=== PATIENT | female | born 1955 | race Caucasian/White ===

== ENCOUNTER 2018-04-12 13:38 | Emergency (ER) | payer BC ==
[~2018-04-12] VITALS: Ht 157.5 cm; Wt 63.0 kg
[~2018-04-12 13:38] MED LIST: ALBU90OI6; DULO60 PO; GLIP5; Omeprazole20 M1; PROP10; Zestril30 MG
[2018-04-12 14:43] LABS: BASOPHILS ABSOLUTE AUTO 0.06 K/mm3 (0.00-0.23); BASOPHILS PERCENT AUTO 1 % (0-2); EOSINOPHILS ABSOLUTE AUTO 0.15 K/mm3 (0.00-0.68); EOSINOPHILS PERCENT AUTO 3 % (0-6); Hematocrit 41.1 % (33.0-51.0); Hemoglobin 14.1 g/dL (11.5-16.0); IMMATURE GRAN PERCENT AUTO 0 % (0-1); LYMPHOCYTES ABSOLUTE AUTO 1.74 K/mm3 (0.84-5.20); LYMPHOCYTES PERCENT AUTO 37 % (21-46); MONOCYTES ABSOLUTE AUTO 0.51 K/mm3 (0.16-1.47); MONOCYTES PERCENT AUTO 11 % (4-13); Mean Corpuscular HGB 33.1 pg (26.0-34.0); Mean Corpuscular HGB Conc 34.3 g/dL (31.5-36.5); Mean Corpuscular Volume 97 fL (80-100); Mean Platelet Volume 9.5 fL (9.1-12.4); NEUTROPHILS ABSOLUTE AUTO 2.28 K/mm3 (1.96-9.15); NEUTROPHILS PERCENT AUTO 48 % (41-73); Platelet Count 268 K/mm3 (150-400); RDW Coefficient Variation 11.8 % (11.7-14.2); RDW Standard Deviation 41.9 fL (35.1-46.3); Red Blood Cell Count 4.26 M/mm3 (3.80-5.20); White Blood Cell Count 4.74 K/mm3 (4.00-11.30)
[2018-04-12 15:04] LABS: Alanine Aminotransfer (ALT/SGP 34 U/L (12-78); Albumin, Blood 4.2 g/dL (3.4-5.0); Alk Phos 77 U/L (50-136); Anion Gap 6 mmol/L (6-16); Aspartate Aminotrans (AST/SGOT 25 U/L (12-37); Bilirubin, Total 0.5 mg/dL (0.1-1.0); Blood Urea Nitrogen 11 mg/dL (8-24); Bun/Creatinine Ratio 16.7 (12.0-20.0); CO2, Blood 28 mmol/L (21-32); Calcium, Blood 9.3 mg/dL (8.5-10.1); Chloride, Blood 106 mmol/L (98-108); Creatinine, Blood 0.66 mg/dL (0.40-1.00); Globulin, Blood 4.1 g/dL (2.2-4.0); Glomerular Filtration Rate >60 (60-); Glucose, Blood 124 mg/dL (70-99); Potassium, Blood 3.6 mmol/L (3.5-5.5); Sodium, Blood 140 mmol/L (136-145); Total Protein, Blood 8.3 g/dL (6.4-8.2)
[2018-04-12 18:48] LABS: Source, Urine Clean Catch
[2018-04-12 18:51] LABS: Appearance, Urine Clear (Clear); Blood, Urine 1+ (Neg); Color, Urine Amber (P-Yellow); Glucose Qualitative, Urine Neg (Neg); Ketones, Urine 1+ (Neg); Leukocyte Esterase, Urine 1+ (Neg); Nitrite, Urine Neg (Neg); Protein, Urine 2+ (Neg); Urobilinogen, Urine 1+ (Normal)
[2018-04-12 18:53] LABS: Bilirubin, Urine 1+ (Neg)
[2018-04-12 18:57] LABS: Amorphous Light (0-Heavy); Bacteria Many /hpf; Calcium Oxalate Crystals Few /hpf; Mucus Light (0-Heavy); Red Blood Cells, Urine 0-2 /hpf (0-2); Squamous Epithelial Cells Few /hpf (Few)
== END 2018-04-12 19:22 | disposition home or self-care (01) ==
LOC: ER 13:38
PROVIDERS: Emergency Medicine
DX: R51 Headache (principal); M47.892 Other spondylosis, cervical region; Z79.899 Other long term (current) drug therapy
CPT/HCPCS: 36415; 70450; 72125; 80053; 81001; 85025; 87086; 99284-25

== ENCOUNTER 2019-09-08 10:40 | Emergency (ER) | payer BC ==
[~2019-09-08] VITALS: Ht 157.5 cm; Wt 62.6 kg
== END 2019-09-08 12:28 | disposition home or self-care (01) ==
LOC: ER 10:40
DX: S86.112A Strain of other muscle(s) and tendon(s) of posterior muscle group at lower leg level, left leg, initial encounter (principal); Z79.899 Other long term (current) drug therapy; Z86.718 Personal history of other venous thrombosis and embolism; X58.XXXA Exposure to other specified factors, initial encounter
CPT/HCPCS: 93971; 99283-25

== ENCOUNTER 2024-03-13 05:39 | Emergency (ER) | payer BC ==
[~2024-03-13] VITALS: Ht 154.9 cm; Wt 60.8 kg
[2024-03-13 06:21] VITALS: BP 125/76
== END 2024-03-13 06:30 | disposition home or self-care (01) ==
LOC: ER 05:39
DX: N30.90 Cystitis, unspecified without hematuria (principal); Z88.5 Allergy status to narcotic agent; Z79.899 Other long term (current) drug therapy
CPT/HCPCS: 99282

== ENCOUNTER 2024-10-31 10:13 | Inpatient (IN) | payer BC ==
[~2024-10-31] VITALS: Ht 160 cm; Wt 59.0 kg
[~2024-10-31 10:13] MED LIST changes: +DULO30 PO; -DULO60 PO; +Prinivil10 MG PO; -Zestril30 MG
[2024-10-31] MEDS ORDERED: NS 1,000 ML IV SCH (10:40)
[2024-10-31] MEDS ORDERED: Ondansetron HCl 2 MG / ML 2ML Vial ONE (10:51)
[2024-10-31] MEDS ORDERED: Ondansetron HCl 2 MG / ML 2ML Vial IV ONE (11:00)
[2024-10-31 11:01] LABS: BASOPHILS ABSOLUTE AUTO 0.05 K/mm3 (0.00-0.23); BASOPHILS PERCENT AUTO 1 % (0-2); EOSINOPHILS ABSOLUTE AUTO 0.04 K/mm3 (0.00-0.68); EOSINOPHILS PERCENT AUTO 0 % (0-6); Hematocrit 39.3 % (33.0-51.0); Hemoglobin 13.3 g/dL (11.5-16.0); IMMATURE GRAN ABSOLUTE AUTO 0.04 K/mm3 (0.00-0.10); IMMATURE GRAN PERCENT AUTO 0 % (0-1); LYMPHOCYTES ABSOLUTE AUTO 1.56 K/mm3 (0.84-5.20); LYMPHOCYTES PERCENT AUTO 15 % (21-46); MONOCYTES ABSOLUTE AUTO 0.81 K/mm3 (0.16-1.47); MONOCYTES PERCENT AUTO 8 % (4-13); Mean Corpuscular HGB 33.2 pg (26.0-34.0); Mean Corpuscular HGB Conc 33.8 g/dL (31.5-36.5); Mean Corpuscular Volume 98 fL (80-100); Mean Platelet Volume 9.3 fL (9.1-12.4); NEUTROPHILS ABSOLUTE AUTO 7.83 K/mm3 (1.96-9.15); NEUTROPHILS PERCENT AUTO 76 % (41-73); Platelet Count 263 K/mm3 (150-400); RDW Coefficient Variation 11.9 % (11.7-14.2); RDW Standard Deviation 43.3 fL (35.1-46.3); Red Blood Cell Count 4.01 M/mm3 (3.80-5.20); White Blood Cell Count 10.33 K/mm3 (4.00-11.30)
[2024-10-31 11:31] LABS: Albumin/Globulin Ratio 1.2 (0.8-1.8); Bilirubin, Total 0.4 mg/dL (0.1-1.0); Bun/Creatinine Ratio 19.3 (12.0-20.0); Calcium, Blood 9.5 mg/dL (8.5-10.1); Creatinine, Blood 0.52 mg/dL (0.40-1.00); Globulin, Blood 3.4 g/dL (2.2-4.0); Potassium, Blood 3.5 mmol/L (3.5-5.5); Total Protein, Blood 7.4 g/dL (6.4-8.2)
[2024-10-31] MEDS ORDERED: HYDROmorphone HCl/Pf 1MG SYR IV ONE ×2 (11:35→13:35)
[2024-10-31] MEDS ORDERED: FLU VACC TS2024-25(6MOS UP)/PF 45 MCG/0.5 ML SYRINGE IM SCH (15:25)
[2024-10-31] MEDS ORDERED: D5W-1/2NS 1,000 ML IV SCH (15:30)
[2024-10-31] MEDS ORDERED: Albuterol HFA200 ACT/6.7 GM INH INH PRN (15:35)
[2024-10-31] MEDS ORDERED: Azithromycin 250 MG Tab PO SCH (16:00)
[2024-10-31] MEDS ORDERED: Pantoprazole Sodium 40 MG Injection IV SCH (16:30)
[2024-10-31 19:15] VITALS: BP 108/68
[2024-10-31] MEDS ORDERED: FentaNYL Citrate 50 MCG/ML 2 ML Injection IV ONE (20:05)
[2024-10-31] MEDS ORDERED: Ondansetron HCl 2 MG / ML 2ML Vial IV PRN (20:05)
[2024-10-31] MEDS ORDERED: FentaNYL Citrate 50 MCG/ML 2 ML Injection IV PRN (20:05)
--- NOTE | 2024-10-31 23:09 | NUR ---
ADMIT NOTE 69 YR OLD FEMALE ADMITTED TO FLOOR FROM THE ED WITH DX OF CHOLITIS. ALERT AND ORIENTED. VSS. CONTINENT. VOICED SEVERE ABD PAIN, NOTIFIED AND FENTANYL 25-50 MCG IV ORDERED Q 4 HR PRN AND ZOFRAN IV FOR NAUSEA PRN. ORIENTED TO USE OF CALL LIGHT. IVF OF D5 1/2 NS ORDERED AND STARTED AT 75 ML/HR. HOB ELEVATED. FIRST DOSE OF FENTANYL ADMINISTERED, MED EFFECTIVE. CALL LIGHT IN REACH, RAILS UP X 2 AND BED IN LOW POSITION FOR SAFETY. ABLE TO REPOSITION SELF IN BED WITHOUT ASSIST FOR COMFORT. AGREED TO USE CALL LIGHT IF NEED OOB. WILL CONT TO MONITOR
--- NOTE | 2024-11-01 03:20 | NUR ---
BAKER BISCUIT SUMMARY WAS ADMITTED TO FLOOR EARLIER THIS SHIFT WITH DX OF CHOLITIS. CAME FROM THE ED WITH SEVERE ABD DISCOMFORT. ALERT AND ORIENTED. COOPERATIVE. MD WAS NOTIFIED, ORDERS FOR FENTANYL (FOR PAIN), AND ZOFRAN (FOR NAUSEA) WERE OBTAINED. HAS RECEIVED FENTANYL X 2 OF THIS WRITING FOR PAIN. IVF OF D5 1/2 NS INFUSING AT 75 ML/HR. HAS BEEN RESTING QUIETLY WITH FEW INTERRUPTIONS OTHERWISE. VSS. UP TO BATHROOM WITH ASSIST, CALL LIGHT IN REACH, RAILS UP X 2 AND BED IN LOW POSITION FOR SAFETY. ABLE TO REPOSITION SELF IN BED WITHOUT ASSIST FOR COMFORT. WILL CONTINUE TO MONITOR.
[2024-11-01 04:50] VITALS: BP 87/48
[2024-11-01 05:15] LABS: BASOPHILS ABSOLUTE AUTO 0.04 K/mm3 (0.00-0.23); BASOPHILS PERCENT AUTO 0 % (0-2); EOSINOPHILS ABSOLUTE AUTO 0.01 K/mm3 (0.00-0.68); EOSINOPHILS PERCENT AUTO 0 % (0-6); IMMATURE GRAN ABSOLUTE AUTO 0.07 K/mm3 (0.00-0.10); IMMATURE GRAN PERCENT AUTO 1 % (0-1); LYMPHOCYTES ABSOLUTE AUTO 0.82 K/mm3 (0.84-5.20); LYMPHOCYTES PERCENT AUTO 7 % (21-46); MONOCYTES PERCENT AUTO 5 % (4-13); Mean Corpuscular HGB 32.8 pg (26.0-34.0); Mean Corpuscular HGB Conc 33.3 g/dL (31.5-36.5); Mean Corpuscular Volume 98 fL (80-100); Mean Platelet Volume 9.4 fL (9.1-12.4); NEUTROPHILS ABSOLUTE AUTO 10.02 K/mm3 (1.96-9.15); NEUTROPHILS PERCENT AUTO 87 % (41-73); Platelet Count 226 K/mm3 (150-400); RDW Coefficient Variation 12.2 % (11.7-14.2); RDW Standard Deviation 44.3 fL (35.1-46.3); Red Blood Cell Count 3.66 M/mm3 (3.80-5.20); White Blood Cell Count 11.56 K/mm3 (4.00-11.30)
[2024-11-01 05:45] LABS: Bun/Creatinine Ratio 15.5 (12.0-20.0); Calcium, Blood 8.7 mg/dL (8.5-10.1); Creatinine, Blood 0.52 mg/dL (0.40-1.00); Potassium, Blood 3.6 mmol/L (3.5-5.5)
[2024-11-01 07:27] VITALS: BP 96/59
[2024-11-01] MEDS ORDERED: DULoxetine HCL 20 MG Cap DR PO SCH (09:00)
[2024-11-01] MEDS ORDERED: Enoxaparin 40 MG/0.4 ML SYR SC SCH (09:00)
[2024-11-01] MEDS ORDERED: Lisinopril 10 MG Tab PO SCH (09:00)
[2024-11-01] MEDS ORDERED: Acetaminophen 325 MG TABLET PO PRN (10:20)
[2024-11-01] MEDS ORDERED: Dicyclomine HCl 20 MG Tab PO SCH (13:00)
[2024-11-01] MEDS ORDERED: Morphine Sulfate 4 MG/1 ML Injection IV PRN (14:10)
[2024-11-01] MEDS ORDERED: FentaNYL Citrate 50 MCG/ML 2 ML Injection IV PRN (14:25)
[2024-11-01] MEDS ORDERED: NS 250 ML IV PRN (14:45)
[2024-11-01] MEDS ORDERED: Piperacillin/Tazobactam Sod 4.5 GM in NS 100 ML IV SCH (15:00)
[2024-11-01 16:33] VITALS: BP 105/65
--- NOTE | 2024-11-01 19:37 | NUR ---
SHIFT SUMMARY PT IS A/OX4, SBA TO THE BATHROOM. PT REPORTING ABDOMINAL PAIN WITH MINIMAL/MODERATE RELIEF WITH PRN FENTANYL Q2 PER OCT. NAUSEA RESOLVED THIS MORNING WITH PRN ZOFRAN PER OCT, PT REPORTS NO NAUSEA AT THIS TIME. ON RA. D5 1/2 NS RUNNING @ 75 ML/HR. PT TOLERATING LITTLE PO INTAKE AT THIS TIME. CONTINUING ANTIBIOTICS. FAMILY AT BEDSIDE THROUGHOUT THIS SHIFT. PT CALLS APPROPRIATELY USING THE CALL LIGHT.
[2024-11-01 19:45] VITALS: BP 109/64
[2024-11-02 05:02] VITALS: BP 110/66
[2024-11-02 05:26] LABS: BASOPHILS ABSOLUTE AUTO 0.03 K/mm3 (0.00-0.23); BASOPHILS PERCENT AUTO 0 % (0-2); EOSINOPHILS ABSOLUTE AUTO 0.06 K/mm3 (0.00-0.68); EOSINOPHILS PERCENT AUTO 1 % (0-6); Hematocrit 33.2 % (33.0-51.0); Hemoglobin 11.1 g/dL (11.5-16.0); IMMATURE GRAN ABSOLUTE AUTO 0.08 K/mm3 (0.00-0.10); IMMATURE GRAN PERCENT AUTO 1 % (0-1); LYMPHOCYTES PERCENT AUTO 9 % (21-46); MONOCYTES ABSOLUTE AUTO 0.48 K/mm3 (0.16-1.47); MONOCYTES PERCENT AUTO 4 % (4-13); Mean Corpuscular HGB 33.2 pg (26.0-34.0); Mean Corpuscular HGB Conc 33.4 g/dL (31.5-36.5); Mean Corpuscular Volume 99 fL (80-100); Mean Platelet Volume 9.2 fL (9.1-12.4); NEUTROPHILS ABSOLUTE AUTO 9.69 K/mm3 (1.96-9.15); NEUTROPHILS PERCENT AUTO 86 % (41-73); Platelet Count 201 K/mm3 (150-400); RDW Coefficient Variation 11.9 % (11.7-14.2); RDW Standard Deviation 43.7 fL (35.1-46.3); Red Blood Cell Count 3.34 M/mm3 (3.80-5.20); White Blood Cell Count 11.34 K/mm3 (4.00-11.30)
--- NOTE | 2024-11-02 05:36 | NUR ---
RED LEADER SUMMARY TEMP ELEVATED AT SHIFT COMMENCE, TYLENOL ADMINISTERED AND NOW AFEBRILE. OTHERWISE, VSS. PAIN MEDS ADMIN THROUGHOUT NOCT FOR ABD PAIN. MED EFFECTIVE, BUT RECEIVING IT ABOUT EVERY 2 TO 4 HRS. IVF OF D5 1/2 NS ADMIN AT 75 ML/HR WHEN ANTIBIOTICS NOT INFUSING - SEE MAR FOR DETAILS. ALERT AND ORIENTED. ABLE TO REPOSITOIN SELF IN BED WITHOUT ASSIST FOR COMFORT. HAS BEEN RESTING QUIETLY WITH OCCASIONAL INTERUPTIONS - SEE ABOVE FOR DETAILS. CALL LIGHT IN REACH, RAILS UP X 2 AND BED IN LOW POSITION FOR SAFETY. HOB ELEVATED FOR RESP COMFORT. WILL CONTINUE TO MONITOR.
[2024-11-02 05:49] LABS: Calcium, Blood 8.5 mg/dL (8.5-10.1); Creatinine, Blood 0.6 mg/dL (0.40-1.00); Potassium, Blood 3.3 mmol/L (3.5-5.5)
[2024-11-02 07:17] VITALS: BP 108/69
[2024-11-02] MEDS ORDERED: Potassium Chloride 20 MEQ TabCR PO ONE (10:35)
[2024-11-02 16:31] VITALS: BP 110/64
--- NOTE | 2024-11-02 18:23 | NUR ---
SHIFT SUMMARY: PT A&O X4. PLEASANT AND COOPERATIVE WITH CARE. NO ACUTE CHANGES THIS SHIFT. PT STILL C/O 02/02 PAIN IN ABDOMEN. SCHEDULED ABX PROVIDED PER EMAR. SBA USING FWW AND GB. PROVIDER CONSULT IN PLACE FOR GI D/T COLITIS. WILL MAKE SECRETARIAL STENOGRAPHER AWARE. CALL LIGHT IN REACH. BED IN LOWEST POSITION.
[2024-11-02 20:19] VITALS: BP 106/67
[2024-11-02] MEDS ORDERED: Lactobacil 2-S.Thermo-Bifido 1 1 Cap PO SCH (21:00)
[2024-11-03 02:33] VITALS: BP 104/56
[2024-11-03 05:23] LABS: BASOPHILS ABSOLUTE AUTO 0.02 K/mm3 (0.00-0.23); BASOPHILS PERCENT AUTO 0 % (0-2); EOSINOPHILS ABSOLUTE AUTO 0.26 K/mm3 (0.00-0.68); EOSINOPHILS PERCENT AUTO 3 % (0-6); Hematocrit 33.4 % (33.0-51.0); Hemoglobin 11.1 g/dL (11.5-16.0); IMMATURE GRAN ABSOLUTE AUTO 0.06 K/mm3 (0.00-0.10); IMMATURE GRAN PERCENT AUTO 1 % (0-1); LYMPHOCYTES ABSOLUTE AUTO 0.73 K/mm3 (0.84-5.20); LYMPHOCYTES PERCENT AUTO 9 % (21-46); MONOCYTES ABSOLUTE AUTO 0.51 K/mm3 (0.16-1.47); MONOCYTES PERCENT AUTO 6 % (4-13); Mean Corpuscular HGB 32.5 pg (26.0-34.0); Mean Corpuscular HGB Conc 33.2 g/dL (31.5-36.5); Mean Corpuscular Volume 98 fL (80-100); Mean Platelet Volume 9.4 fL (9.1-12.4); NEUTROPHILS ABSOLUTE AUTO 6.84 K/mm3 (1.96-9.15); NEUTROPHILS PERCENT AUTO 81 % (41-73); Platelet Count 227 K/mm3 (150-400); RDW Coefficient Variation 11.9 % (11.7-14.2); RDW Standard Deviation 42.5 fL (35.1-46.3); Red Blood Cell Count 3.42 M/mm3 (3.80-5.20); White Blood Cell Count 8.42 K/mm3 (4.00-11.30)
[2024-11-03 06:03] LABS: Bun/Creatinine Ratio 8.8 (12.0-20.0); Calcium, Blood 8.9 mg/dL (8.5-10.1); Creatinine, Blood 0.57 mg/dL (0.40-1.00); Potassium, Blood 3.4 mmol/L (3.5-5.5)
--- NOTE | 2024-11-03 06:22 | NUR ---
Shift Summary Pt had painful abdomen t/o the night but she was able to sleep well from 2100 onwards. She is rcving d5w 1/2NS cont. infusion as ordered at 75 ml/hr and IV ABX. She is AOx4, 1 SBA to BR. Consult request placed with Dr. Dent's answering service. No acute changes.
[2024-11-03 07:19] VITALS: BP 115/71
[2024-11-03] MEDS ORDERED: Potassium Chloride 20 MEQ TabCR PO ONE (09:25)
[2024-11-03] MEDS ORDERED: Ciprofloxacin 400MG/D5 200ML 200 ML IV SCH (16:37)
[2024-11-03 16:45] VITALS: BP 114/62
[2024-11-03] MEDS ORDERED: MethylPREDNISolone Sod Succ 125 MG Vial IV ONE (17:00)
--- NOTE | 2024-11-03 18:11 | NUR ---
SHIFT SUMMARY PT WAS SEEN BY Alysha GOODMAN TODAY. CT WITH ORAL AND IV CONTRAST COMPLETED. DR. GOODMAN IN TO EVALUATE AFTERWARDS AND CHANGED ABX AND ADDED A STEROID DOSE. PT MEDICATED FOR PAIN SEVERAL TIMES TODAY WITH FENTNYL. PT HAD GOOD RELIEF WITH 50 MCG ORDERED. K PAD PLACED TO ABD FOR FURTHER COMFORT. PT REPORTS PASSING GAS, ONE BM THIS AFTERNOON. NO OTHER ACUTE CHANGES IN ASSESSMENT AT THIS TIME. VS REVIEWED. CALL LIGHT IN REACH. DENIES OTHER NEEDS AT THIS TIME. CALL LIGHT IN REACH.
[2024-11-03] MEDS ORDERED: OMEP20ER PO (19:13)
[2024-11-03 20:05] VITALS: BP 114/70
[2024-11-04 02:43] VITALS: BP 115/67
[2024-11-04 05:12] LABS: BASOPHILS ABSOLUTE AUTO 0.01 K/mm3 (0.00-0.23); BASOPHILS PERCENT AUTO 0 % (0-2); EOSINOPHILS PERCENT AUTO 0 % (0-6); Hematocrit 35.3 % (33.0-51.0); Hemoglobin 11.8 g/dL (11.5-16.0); IMMATURE GRAN ABSOLUTE AUTO 0.02 K/mm3 (0.00-0.10); IMMATURE GRAN PERCENT AUTO 0 % (0-1); LYMPHOCYTES ABSOLUTE AUTO 0.74 K/mm3 (0.84-5.20); LYMPHOCYTES PERCENT AUTO 13 % (21-46); MONOCYTES ABSOLUTE AUTO 0.32 K/mm3 (0.16-1.47); MONOCYTES PERCENT AUTO 5 % (4-13); Mean Corpuscular HGB 32.6 pg (26.0-34.0); Mean Corpuscular HGB Conc 33.4 g/dL (31.5-36.5); Mean Corpuscular Volume 98 fL (80-100); Mean Platelet Volume 8.9 fL (9.1-12.4); NEUTROPHILS ABSOLUTE AUTO 4.85 K/mm3 (1.96-9.15); NEUTROPHILS PERCENT AUTO 82 % (41-73); Platelet Count 271 K/mm3 (150-400); RDW Coefficient Variation 11.5 % (11.7-14.2); RDW Standard Deviation 41.5 fL (35.1-46.3); Red Blood Cell Count 3.62 M/mm3 (3.80-5.20); White Blood Cell Count 5.94 K/mm3 (4.00-11.30)
[2024-11-04 05:36] LABS: Bun/Creatinine Ratio 8.9 (12.0-20.0); Calcium, Blood 9.1 mg/dL (8.5-10.1); Creatinine, Blood 0.56 mg/dL (0.40-1.00); Potassium, Blood 3.7 mmol/L (3.5-5.5)
--- NOTE | 2024-11-04 07:07 | NUR ---
Shift Summary Pt started the shift off with 6/10 abd pain, same as the past few days, medicated per EMAR. Pt did not c/o of pain after 0000 and slept well. This AM pt states she is feeling nearly completely better and is hoping to go home today. She took a shower independently this AM. Tolerating full liquid diet well, although so far her PO intake has been poor.
[2024-11-04 08:16] VITALS: BP 108/62
[2024-11-04] MEDS ORDERED: Acetaminophen650 M1 PO (13:24)
[2024-11-04] MEDS ORDERED: CIPR500 PO (13:25)
[2024-11-04] MEDS ORDERED: PROBIOTIC1 EA14 PO (13:25)
[2024-11-04] MEDS ORDERED: METR500 PO (13:26)
[2024-11-04] MEDS ORDERED: Prednisone10 MG (13:27)
--- NOTE | 2024-11-04 14:28 | NUR ---
DISCHARGE NOTE MS ARIAS SAID SHE FELT A LOT BETTER TODAY. SHE DENIES ANY NAUSEA OR ABDOMINAL PAIN. NO DIARREA/NO STOOL THIS SHIFT. SHE FELT READY FOR DISCHARGE. SHE VERBALISED UNDERSTANDING OF WRITTEN AND VERBAL DISCHARGE INSTRUCTIONS. PIV REMOVED INTACT. ASSISTED VIA W/C WITH VISITOR/RIDE HOME AT 1400HRS. NO NEW QUESTIONS OR CONCERNS PRIOR TO DISCHARGE.
[2024-11-04] MEDS ORDERED: MetroNIDAZOLE 500MG/NS 100 ml 100 ML IV SCH (16:38)
== END 2024-11-04 14:10 | disposition home or self-care (01) | DRG 392 ==
LOC: ER 10:13 → ERHOLD 10:14 → MEDS 19:10
PROVIDERS: Emergency Medicine; Family Medicine; ADMIT Internal Medicine
DX: K52.9 Noninfective gastroenteritis and colitis, unspecified (principal); E87.1 Hypo-osmolality and hyponatremia; K21.9 Gastro-esophageal reflux disease without esophagitis; F10.10 Alcohol abuse, uncomplicated; E11.65 Type 2 diabetes mellitus with hyperglycemia; F41.8 Other specified anxiety disorders; E87.6 Hypokalemia; D64.9 Anemia, unspecified; I10 Essential (primary) hypertension; J45.909 Unspecified asthma, uncomplicated; Z90.79 Acquired absence of other genital organ(s); Z98.890 Other specified postprocedural states; Z88.5 Allergy status to narcotic agent; Z79.899 Other long term (current) drug therapy; Z71.41 Alcohol abuse counseling and surveillance of alcoholic; Z98.51 Tubal ligation status; Z88.8 Allergy status to other drugs, medicaments and biological substances
CPT/HCPCS: 36415; 74177; 80048; 80053; 83605; 83690; 85025; 93005; 93010; 94640; 94664; 94760; 96361; 96365; 96366; 96372; 96374-59; 96375; 96376; 99285-25; A9270; G0378; J0744; J1171; J1650; J2405; J2470; J2543; J2919; J3010; J7030; J7042; J7050; Q9967

== ENCOUNTER → 2024-11-12 | Outpatient (CLI) | payer BC ==
[~2024-11-12] MED LIST changes: +Acetaminophen650 M1 PO; +CIPR500 PO; +METR500 PO; +OMEP20ER PO; +PROBIOTIC1 EA14 PO; +Prednisone10 MG
[2024-11-13 20:25] LABS: Adenovirus F 40/41 Not Detected (NOT DETECT); Astrovirus Not Detected (NOT DETECT); Campylobacter Sp Not Detected (NOT DETECT); Cryptosporidium Not Detected (NOT DETECT); Cyclospora Cayetanensis Not Detected (NOT DETECT); E. Coli O157 Not Detected (NOT DETECT); Entamoeba Histolytica Not Detected (NOT DETECT); Enteroaggregative E. coli-EAEC Not Detected (NOT DETECT); Enteropathogenic E. coli-EPEC Not Detected (NOT DETECT); Enterotoxigenic E. coli-ETEC Not Detected (NOT DETECT); Giardia Lamblia Not Detected (NOT DETECT); Norovirus GI/GII Not Detected (NOT DETECT); Plesiomonas Shigelloides Not Detected (NOT DETECT); Rotavirus A Not Detected (NOT DETECT); Salmonella Sp Not Detected (NOT DETECT); Sapovirus Not Detected (NOT DETECT); Shiga Toxin-prod E. coli-STEC Not Detected (NOT DETECT); Shigella/Enteroin E. coli-EIEC Not Detected (NOT DETECT); Vibrio Cholerae Not Detected (NOT DETECT); Vibrio Sp Not Detected (NOT DETECT); Yersinia Enterocolitica Not Detected (NOT DETECT)
== END ==
LOC: LAB SHORT 16:04 → LAB 16:04
PROVIDERS: Family Medicine
DX: K52.9 Noninfective gastroenteritis and colitis, unspecified (principal)
CPT/HCPCS: 87507

== ENCOUNTER → 2024-11-18 | Outpatient (CLI) | payer BC ==
[2024-11-18 17:17] LABS: Protein, Urine Quantitative 5.8 mg/dL (0.0-11.9)
[2024-11-18 17:23] LABS: Creatinine Urine 28.3 mg/dL (27.00-270.00); Microalbumin, Urine Quant. 7.3 mg/L (0.000-20.000)
== END | disposition home or self-care (01) ==
LOC: LAB 15:22 → LAB SHORT 15:22 → LAB FUT 10-14 09:25
PROVIDERS: Internal Medicine Nephrology
DX: E11.22 Type 2 diabetes mellitus with diabetic chronic kidney disease (principal); N18.2 Chronic kidney disease, stage 2 (mild); D63.1 Anemia in chronic kidney disease; E11.21 Type 2 diabetes mellitus with diabetic nephropathy; N25.81 Secondary hyperparathyroidism of renal origin; F63.1 Pyromania; E55.9 Vitamin D deficiency, unspecified; E78.00 Pure hypercholesterolemia, unspecified; R76.9 Abnormal immunological finding in serum, unspecified; R94.5 Abnormal results of liver function studies; R94.6 Abnormal results of thyroid function studies; D51.8 Other vitamin B12 deficiency anemias; D52.8 Other folate deficiency anemias; D50.9 Iron deficiency anemia, unspecified
CPT/HCPCS: 81050; 82043; 82570; 84156

== ENCOUNTER → 2025-04-16 | Outpatient (CLI) | payer BC ==
[2025-04-19 15:21] LABS: CALPROTECTIN,FECAL 64 ug/g (<=49)
== END ==
LOC: LAB SHORT 10:52 → LAB 10:52
PROVIDERS: Nurse Practitioner Family
DX: R93.3 Abnormal findings on diagnostic imaging of other parts of digestive tract (principal)
CPT/HCPCS: 83993

== ENCOUNTER 2025-06-17 10:09 | Day surgery (SDC) | payer BC ==
[~2025-06-17] VITALS: Ht 157.5 cm; Wt 61.0 kg
[2025-06-17] MEDS ORDERED: ASPI81CH (11:17)
[2025-06-17] MEDS ORDERED: ATEN25 (11:17)
[2025-06-17] MEDS ORDERED: ATOR40TA (11:18)
[2025-06-17] MEDS ORDERED: FLUTICASONE FUROATE (11:22)
[2025-06-17] MEDS ORDERED: VILANTEROL (11:22)
[2025-06-17] MEDS ORDERED: UMECLIDINIUM (11:22)
--- NOTE | 2025-06-17 13:11 | NUR ---
06/17/25 1311 Lily Duvall UPON ARRIVAL TO STEPDOWN PT REPORTED ABDOMINAL PAIN OF 03/04, DARIAN,RN REPORTED THIS TO DR DRIVER. PER DR DRIVER THIS SHOULD IMPROVE.
[2025-06-17 13:18] VITALS: BP 113/78
== END 2025-06-17 13:21 | disposition home or self-care (01) ==
LOC: ORSCSDS 10:09
PROVIDERS: Internal Medicine Gastroenterology
PROC: 0DB78ZX Excision of Stomach, Pylorus, Via Natural or Artificial Opening Endoscopic, Diagnostic (ICD-10-PCS; principal; 2025-06-17 12:15)
PROC: 0DJD8ZZ Inspection of Lower Intestinal Tract, Via Natural or Artificial Opening Endoscopic (ICD-10-PCS; principal; 2025-06-17 12:15)
DX: R10.84 Generalized abdominal pain (principal); K21.9 Gastro-esophageal reflux disease without esophagitis; R93.3 Abnormal findings on diagnostic imaging of other parts of digestive tract; K29.50 Unspecified chronic gastritis without bleeding; K57.30 Diverticulosis of large intestine without perforation or abscess without bleeding; Z79.899 Other long term (current) drug therapy; Z79.82 Long term (current) use of aspirin; I10 Essential (primary) hypertension; R73.03 Prediabetes; J45.909 Unspecified asthma, uncomplicated; F32.A Depression, unspecified
CPT/HCPCS: 82947; 88305; 88342; J2704; J7120